=== PATIENT | female | born 1935 | race Caucasian/White ===

== ENCOUNTER 2017-09-12 10:46 | Day surgery (SDC) | payer MEDICARE, OTHER ==
[~2017-09-12] VITALS: Ht 152.4 cm; Wt 64.0 kg
[~2017-09-12 10:46] MED LIST: AMLO5 PO; ARTIFICIAL TEA3.5 G1 RIGHTEYE; ASPI325EC PO; CHOL10002; DOCU100 PO; ESTRTP VAG; FLUT.05NI; HYDCHL12.5 PO; IBUP800 PO; IRBE150 PO; LAVAP17G PO; LEVSOD50 PO; MAGNESIUM PO; MELA3 PO; METO50ER PO; METR70GEL VAG; MULVITMIND PO; OLME20 PO; SUMA25 PO; SV FLAXSEED OI1 EACH PO; TRAM50 PO; VERA180ERB PO; Ventolin/Prove6.7 GM INH; Vitamin B-Comp1 EACH PO
== END 2017-09-12 14:11 | disposition home or self-care (01) ==
LOC: ORSCSDS 10:46
PROVIDERS: Podiatrist Foot & Ankle Surgery
PROC: 0QBN0ZZ Excision of Right Metatarsal, Open Approach (ICD-10-PCS; principal; 2017-09-12 12:30)
PROC: 0QBL0ZZ Excision of Right Tarsal, Open Approach (ICD-10-PCS; principal; 2017-09-12 12:30)
DX: M19.071 Primary osteoarthritis, right ankle and foot (principal); I10 Essential (primary) hypertension; E78.5 Hyperlipidemia, unspecified; G47.33 Obstructive sleep apnea (adult) (pediatric); E03.9 Hypothyroidism, unspecified; I69.320 Aphasia following cerebral infarction; Z79.899 Other long term (current) drug therapy
CPT/HCPCS: J0171; J0690; J1100; J2250; J2405; J3010; J7120

== ENCOUNTER 2017-10-31 13:28 | Emergency (ER) | payer MEDICARE, OTHER ==
[~2017-10-31] VITALS: Ht 152.4 cm; Wt 63.5 kg
== END 2017-10-31 14:55 | disposition home or self-care (01) ==
LOC: ER 13:28
DX: Z48.89 Encounter for other specified surgical aftercare (principal)
CPT/HCPCS: 99283

== ENCOUNTER 2018-09-25 13:38 | Emergency (ER) | payer MEDICARE, OTHER ==
[~2018-09-25] VITALS: Ht 152.4 cm; Wt 65.8 kg
[2018-09-25] MEDS ORDERED: Robaxin500 MG PO (15:59)
[2018-09-25] MEDS ORDERED: Ultram50 MG PO (15:59)
[2018-09-25] MEDS ORDERED: Voltaren100 GM TOP (15:59)
== END 2018-09-25 16:13 | disposition home or self-care (01) ==
LOC: ER 13:38
DX: G89.29 Other chronic pain (principal); M54.5 Low back pain; E03.9 Hypothyroidism, unspecified; M19.90 Unspecified osteoarthritis, unspecified site; I10 Essential (primary) hypertension; M79.7 Fibromyalgia; Z88.5 Allergy status to narcotic agent; Z88.8 Allergy status to other drugs, medicaments and biological substances; Z79.82 Long term (current) use of aspirin; Z79.899 Other long term (current) drug therapy
CPT/HCPCS: 99283

== ENCOUNTER → 2018-12-07 | Outpatient (CLI) | payer MEDICARE, OTHER ==
[~2018-12-07] MED LIST changes: +Robaxin500 MG PO; +Ultram50 MG PO; +Voltaren100 GM TOP
== END | disposition home or self-care (01) ==
LOC: LAB 16:09 → LAB SHORT 16:09
DX: N89.8 Other specified noninflammatory disorders of vagina (principal)
CPT/HCPCS: 87070; 87205

== ENCOUNTER → 2019-01-05 | Outpatient (CLI) | payer MEDICARE, OTHER | LOC: LAB SHORT 16:15 → LAB 16:15 | DX: N76.3 Subacute and chronic vulvitis (principal); L82.1 Other seborrheic keratosis; I83.93 Asymptomatic varicose veins of bilateral lower extremities; L81.4 Other melanin hyperpigmentation; L50.8 Other urticaria; L85.3 Xerosis cutis | CPT/HCPCS: 87102 ==

== ENCOUNTER 2019-06-13 18:21 | Emergency (ER) | payer MEDICARE, OTHER | END 2019-06-13 20:11 | disposition left against medical advice (07) | LOC: ER 18:21 | DX: Z53.21 Procedure and treatment not carried out due to patient leaving prior to being seen by health care provider (principal) ==

== ENCOUNTER → 2019-06-19 | Outpatient (CLI) | payer MEDICARE, OTHER | END | disposition home or self-care (01) | LOC: LAB 13:06 → LAB SHORT 13:06 | DX: R41.82 Altered mental status, unspecified (principal) | CPT/HCPCS: 87086 ==

== ENCOUNTER 2020-02-05 15:43 | Observation (INO) | payer MEDICARE, OTHER ==
[~2020-02-05] VITALS: Ht 154.9 cm; Wt 62.6 kg
[2020-02-05 16:26] LABS: BASOPHILS ABSOLUTE AUTO 0.09 K/mm3 (0.00-0.23); BASOPHILS PERCENT AUTO 1 % (0-2); EOSINOPHILS ABSOLUTE AUTO 0.01 K/mm3 (0.00-0.68); EOSINOPHILS PERCENT AUTO 0 % (0-6); Hematocrit 39.2 % (33.0-51.0); Hemoglobin 13.3 g/dL (11.5-16.0); IMMATURE GRAN ABSOLUTE AUTO 0.03 K/mm3 (0.00-0.10); IMMATURE GRAN PERCENT AUTO 0 % (0-1); LYMPHOCYTES ABSOLUTE AUTO 1.65 K/mm3 (0.84-5.20); LYMPHOCYTES PERCENT AUTO 13 % (21-46); MONOCYTES ABSOLUTE AUTO 0.76 K/mm3 (0.16-1.47); MONOCYTES PERCENT AUTO 6 % (4-13); Mean Corpuscular HGB 30.2 pg (26.0-34.0); Mean Corpuscular HGB Conc 33.9 g/dL (31.5-36.5); Mean Corpuscular Volume 89 fL (80-100); Mean Platelet Volume 10.1 fL (9.1-12.4); NEUTROPHILS ABSOLUTE AUTO 9.93 K/mm3 (1.96-9.15); NEUTROPHILS PERCENT AUTO 80 % (41-73); Platelet Count 240 K/mm3 (150-400); RDW Coefficient Variation 12.4 % (11.7-14.2); RDW Standard Deviation 40.9 fL (35.1-46.3); White Blood Cell Count 12.47 K/mm3 (4.00-11.30)
[2020-02-05 16:45] LABS: International Normalized Ratio 1.05; Prothrombin Time Results 11.2 Sec (9.7-11.5)
[2020-02-05 17:01] LABS: Alanine Aminotransfer (ALT/SGP 20 U/L (12-78); Albumin, Blood 3.6 g/dL (3.4-5.0); Alk Phos 75 U/L (50-136); Anion Gap 14 mmol/L (6-16); Aspartate Aminotrans (AST/SGOT 13 U/L (12-37); Bilirubin, Total 0.6 mg/dL (0.1-1.0); Blood Urea Nitrogen 12 mg/dL (8-24); Bun/Creatinine Ratio 13.3 (12.0-20.0); CO2, Blood 18 mmol/L (21-32); Calcium, Blood 9.5 mg/dL (8.5-10.1); Chloride, Blood 103 mmol/L (98-108); Ethanol (Alcohol), Blood, Med <3 mg/dL; Globulin, Blood 3.6 g/dL (2.2-4.0); Glomerular Filtration Rate >60 (60-); Glucose, Blood 89 mg/dL (70-99); Potassium, Blood 4.1 mmol/L (3.5-5.5); Sodium, Blood 135 mmol/L (136-145); Total Protein, Blood 7.2 g/dL (6.4-8.2)
[2020-02-05 18:33] LABS: Source, Urine Catheter
[2020-02-05 18:42] LABS: Appearance, Urine Clear (Clear); Bilirubin, Urine Neg (Neg); Blood, Urine 1+ (Neg); Color, Urine Yellow (P-Yellow); Glucose Qualitative, Urine Neg (Neg); Ketones, Urine 2+ (Neg); Leukocyte Esterase, Urine Neg (Neg); Nitrite, Urine Neg (Neg); Protein, Urine Neg (Neg); Urobilinogen, Urine NORM (Normal)
[2020-02-05] MEDS ORDERED: LEVO-T50 MCG PO (18:43)
[2020-02-05] MEDS ORDERED: DULO30 PO (18:43)
[2020-02-05] MEDS ORDERED: Magnesium Oxid500 MG PO (18:45)
[2020-02-05] MEDS ORDERED: VITAMIN D310 MC4 (18:46)
[2020-02-05] MEDS ORDERED: TESSALON PERLE100 MG PO (18:47)
[2020-02-05] MEDS ORDERED: SUMA25 PO (18:47)
[2020-02-05] MEDS ORDERED: ZYRTEC10 M2 (18:47)
[2020-02-05] MEDS ORDERED: TRAM50 PO ×2 (18:47→22:57)
[2020-02-05] MEDS ORDERED: ACET500 PO (18:47)
[2020-02-05 19:19] LABS: Granular Casts 0-2 /lpf (0); Hyaline Casts 0-2 /lpf (0-2); White Blood Cells, Urine 0-2 /hpf (0-5)
[2020-02-05 19:20] LABS: Bacteria Few /hpf; Squamous Epithelial Cells Not Seen /hpf (Few)
[2020-02-05 19:23] LABS: U Amphetamine Screen Not Detected; U Barbituate Screen Not Detected; U Benzodiazapine Screen Not Detected; U Buprenorphine Screen Not Detected; U Cannabinoids Screen Not Detected; U Cocaine Screen Not Detected; U Methadone Screen Not Detected; U Methamphetamine Screen Not Detected; U Opiates Screen Not Detected; U Oxycodone Screen Not Detected; U Phencyclidine Screen Not Detected; U Propoxyphene Screen Not Detected
[2020-02-05] MEDS ORDERED: Imitrex50 MG PO (20:29)
[2020-02-05] MEDS ORDERED: HYDHCL25 PO (20:29)
[2020-02-05] MEDS ORDERED: Vitamin D2000 UNIT PO (20:30)
[2020-02-05] MEDS ORDERED: AMLODIPINE BESYL5 MG PO (20:30)
[2020-02-05] MEDS ORDERED: AVAPRO300 MG PO (20:30)
[2020-02-05] MEDS ORDERED: ZYRTEC10 M2 PO (20:31)
--- NOTE | 2020-02-06 01:02 | NUR ---
ARRIVAL TO FLOOR ARRIVED BY STRETCHER TO RM 350 @[id number]. PT RESTING COMFORTABLY, DAUGHTER VIRIDIANA @BEDSIDE TO ANSWER ADMIT QUESTIONS. PT AOX2-SELF/PLACE ONLY, HOWEVER CAN [place] STATE [place]. STATES "I'M @MY HOUSE". UNAWARE DATE OR SITUATION. DENIES PAIN, N/V OR DYSPNEA. ABLE TO FOLLOW SIMPLE DIRECTIONS SUCH BUSINESS INFO CONSULTANT EQUALLY c BILAT HANDS, STICK OUT TONGUE, & WIGGLE TOES. WITHIN 30 MIN OF ARRIVING TO FLOOR, PT PULLED OUT IV THAT WAS PLACED IN NILDA BEFORE ARRIVING TO FLOOR. PT WAS ASSISTED TO BSC c MAX 2 PER. WHILE ON BSC PT SLUMPED OVER TO LEFT & L ARM WENT WEAK, WITHIN MIN PT WAS ABLE TO SIT ERRECT AGAIN & MOVE L ARM. HAS VERY WEAK, SUFFLING, UNSTEADY GAIT. BED ALARM IN PLACE FOR SAFETY. TM.
[2020-02-06 04:41] LABS: BASOPHILS ABSOLUTE AUTO 0.08 K/mm3 (0.00-0.23); BASOPHILS PERCENT AUTO 1 % (0-2); EOSINOPHILS ABSOLUTE AUTO 0.02 K/mm3 (0.00-0.68); EOSINOPHILS PERCENT AUTO 0 % (0-6); Hematocrit 39.6 % (33.0-51.0); Hemoglobin 13.1 g/dL (11.5-16.0); IMMATURE GRAN ABSOLUTE AUTO 0.01 K/mm3 (0.00-0.10); IMMATURE GRAN PERCENT AUTO 0 % (0-1); LYMPHOCYTES ABSOLUTE AUTO 1.87 K/mm3 (0.84-5.20); LYMPHOCYTES PERCENT AUTO 23 % (21-46); MONOCYTES ABSOLUTE AUTO 0.98 K/mm3 (0.16-1.47); MONOCYTES PERCENT AUTO 12 % (4-13); Mean Corpuscular HGB Conc 33.1 g/dL (31.5-36.5); Mean Corpuscular Volume 91 fL (80-100); Mean Platelet Volume 9.8 fL (9.1-12.4); NEUTROPHILS ABSOLUTE AUTO 5.18 K/mm3 (1.96-9.15); NEUTROPHILS PERCENT AUTO 64 % (41-73); Platelet Count 239 K/mm3 (150-400); RDW Coefficient Variation 12.6 % (11.7-14.2); Red Blood Cell Count 4.36 M/mm3 (3.80-5.20); White Blood Cell Count 8.14 K/mm3 (4.00-11.30)
[2020-02-06 04:56] LABS: Calcium, Blood 9.4 mg/dL (8.5-10.1)
--- NOTE | 2020-02-06 06:05 | NUR ---
SHIFT SUMMARY AOX2-SELF/TOWN ONLY, DX DEMENTIA 6 MONTHS AGO PER DAUGHTER. DOES FOLLOW DIRECTIONS. PLEASENT & COOPERATIVE c CARE. VSS. DENIES N/V, PAIN, DYSPNEA. CURRENTLY NPO PER ORDERS. PLAN IS TO MONITOR & SEE IF MENTATION IMPROVES ONCE CYMBALTA CLEARS OUT OF SYSTEM, SINCE PT HAS A REPORTED ALLERGY. DOES NOT USE CALL LIGHT FOR ASSISTANCE & TRYS TO GET OOB W/O HELP, HAS UNSTEADY/SUFFLING GAIT, 2 ASSIST TO BSC. DAUGHTER REPORTED PT HASN'T EATEN IN 2 DAYS. CALL LIGHT & BED ALARM IN PLACE FOR SAFETY.
--- NOTE | 2020-02-06 11:32 | NUR ---
PT DISCHARGED HOME. NO NEW MEDS TO EDUCATE ON. TRIED TO MAKE FOLLOW UP WITH PCP BUT PLACED ON HOLD THEN SENT TO RECORDING. PT FAMILY TO SET FOLLOW UP. NO IV TO REMOVED. PT DRESSED BY STAFF AND WHEELED OUT TO BE TAKEN HOME BY FAMILY.
== END 2020-02-06 11:32 | disposition home or self-care (01) ==
LOC: ER 15:43 → MEDS 15:44
PROVIDERS: Nurse Practitioner Acute Care; Physician Assistant; ADMIT Internal Medicine
DX: G92 Toxic encephalopathy (principal); F03.90 Unspecified dementia, unspecified severity, without behavioral disturbance, psychotic disturbance, mood disturbance, and anxiety; I10 Essential (primary) hypertension; E03.9 Hypothyroidism, unspecified; G89.29 Other chronic pain; G43.909 Migraine, unspecified, not intractable, without status migrainosus; M54.5 Low back pain; M19.90 Unspecified osteoarthritis, unspecified site; M79.7 Fibromyalgia; J45.909 Unspecified asthma, uncomplicated; Z90.710 Acquired absence of both cervix and uterus; Z90.49 Acquired absence of other specified parts of digestive tract; Z66 Do not resuscitate; Z88.4 Allergy status to anesthetic agent; Z88.5 Allergy status to narcotic agent; Z88.6 Allergy status to analgesic agent; Z88.8 Allergy status to other drugs, medicaments and biological substances; Z79.82 Long term (current) use of aspirin; Z79.51 Long term (current) use of inhaled steroids; Z79.1 Long term (current) use of non-steroidal anti-inflammatories (NSAID); Z79.899 Other long term (current) drug therapy
CPT/HCPCS: 36415; 70450; 80048; 80053; 81001; 84443; 84484; 85025; 85610; 93005; 93010; 96372; 99285-25; A9270-GY; G0378; G0480; J2060; P9612

== ENCOUNTER 2020-03-28 13:21 | Observation (INO) | payer MEDICARE, OTHER ==
[~2020-03-28] VITALS: Ht 162.6 cm; Wt 60.7 kg
[~2020-03-28 13:21] MED LIST changes: +ACET500 PO; +AMLODIPINE BESYL5 MG PO; +AVAPRO300 MG PO; +DULO30 PO; +HYDHCL25 PO; +Imitrex50 MG PO; +LEVO-T50 MCG PO; +Magnesium Oxid500 MG PO; +TESSALON PERLE100 MG PO; +VITAMIN D310 MC4; +Vitamin D2000 UNIT PO; +ZYRTEC10 M2; +ZYRTEC10 M2 PO
[2020-03-28 13:43] LABS: BASOPHILS PERCENT AUTO 1 % (0-2); EOSINOPHILS ABSOLUTE AUTO 0.09 K/mm3 (0.00-0.68); EOSINOPHILS PERCENT AUTO 1 % (0-6); Hematocrit 42.2 % (33.0-51.0); Hemoglobin 13.9 g/dL (11.5-16.0); IMMATURE GRAN ABSOLUTE AUTO 0.02 K/mm3 (0.00-0.10); IMMATURE GRAN PERCENT AUTO 0 % (0-1); LYMPHOCYTES ABSOLUTE AUTO 3.32 K/mm3 (0.84-5.20); LYMPHOCYTES PERCENT AUTO 36 % (21-46); MONOCYTES ABSOLUTE AUTO 0.62 K/mm3 (0.16-1.47); MONOCYTES PERCENT AUTO 7 % (4-13); Mean Corpuscular HGB 30.1 pg (26.0-34.0); Mean Corpuscular HGB Conc 32.9 g/dL (31.5-36.5); Mean Corpuscular Volume 91 fL (80-100); Mean Platelet Volume 9.8 fL (9.1-12.4); NEUTROPHILS ABSOLUTE AUTO 5.09 K/mm3 (1.96-9.15); NEUTROPHILS PERCENT AUTO 55 % (41-73); Platelet Count 248 K/mm3 (150-400); RDW Coefficient Variation 13.4 % (11.7-14.2); RDW Standard Deviation 45.2 fL (35.1-46.3); Red Blood Cell Count 4.62 M/mm3 (3.80-5.20); White Blood Cell Count 9.24 K/mm3 (4.00-11.30)
[2020-03-28 14:07] LABS: Source, Urine Catheter
[2020-03-28 14:15] LABS: Appearance, Urine Clear (Clear); Bilirubin, Urine Neg (Neg); Blood, Urine Neg (Neg); Color, Urine Yellow (P-Yellow); Glucose Qualitative, Urine Neg (Neg); Ketones, Urine 1+ (Neg); Leukocyte Esterase, Urine Neg (Neg); Nitrite, Urine Neg (Neg); Protein, Urine 1+ (Neg); Specific Gravity, Urine 1.015 (1.003-1.022); Urobilinogen, Urine NORM (Normal)
[2020-03-28 14:15] LABS: Alanine Aminotransfer (ALT/SGP 22 U/L (12-78); Albumin, Blood 3.6 g/dL (3.4-5.0); Alk Phos 83 U/L (50-136); Anion Gap 10 mmol/L (6-16); Aspartate Aminotrans (AST/SGOT 20 U/L (12-37); Bilirubin, Total 0.5 mg/dL (0.1-1.0); Blood Urea Nitrogen 8 mg/dL (8-24); Bun/Creatinine Ratio 10.3 (12.0-20.0); CO2, Blood 20 mmol/L (21-32); Calcium, Blood 10.2 mg/dL (8.5-10.1); Chloride, Blood 110 mmol/L (98-108); Creatinine, Blood 0.78 mg/dL (0.40-1.00); Globulin, Blood 3.6 g/dL (2.2-4.0); Glomerular Filtration Rate >60 (60-); Glucose, Blood 113 mg/dL (70-99); Salicylate <1.7 mg/dL (2.8-20.0); Sodium, Blood 140 mmol/L (136-145); Total Protein, Blood 7.2 g/dL (6.4-8.2)
[2020-03-28 14:17] LABS: Acetaminophen, Random <2.0 ug/mL (10.0-30.0)
[2020-03-28 14:53] LABS: U Amphetamine Screen Not Detected; U Barbituate Screen Not Detected; U Benzodiazapine Screen Not Detected; U Buprenorphine Screen Not Detected; U Cannabinoids Screen Not Detected; U Cocaine Screen Not Detected; U Methadone Screen Not Detected; U Methamphetamine Screen Not Detected; U Opiates Screen Not Detected; U Oxycodone Screen Not Detected; U Phencyclidine Screen Not Detected
[2020-03-28 14:54] LABS: U Propoxyphene Screen Not Detected
[2020-03-28] MEDS ORDERED: AVAPRO300 MG PO (15:14)
--- NOTE | 2020-03-28 18:23 | NUR ---
ADMISSION TO MEDICAL FLOOR/SHIFT SUMMARY PT TRANSFERRED TO MEDICAL FLOOR AT APPROX 1712. PT SLEEPING UPON ARRIVAL. SOME OCCASIONAL INCOHERENT MUMBLING. UNABLE TO ANSWER QUESTIONS. UNABLE TO ORIENT TO THE ROOM. RESISTIVE TO SOME CARE SUCH BLOOD PRESSURE, BRIEF CHANGE AND LAB DRAW. VITALS OBTAINED UPON ARRIVAL. BP, HR AND TEMP ELEVATED. VEWS SCORE OF 3 REPORTED TO CHARGE NURSE, RENATO. CRITICAL LACTIC REPORTED TO DR SERNA. PT TRYING TO SWING LEGS OUT OF BED. BED ALARM ON. DR SERNA IN ROOM. DISCUSSED PT CURRENT STATUS. ADDITIONAL ORDERS PLACED. PHYSICAL ASSESSMENT PERFORMED. SEE CHART. PT CURRENTLY RESTING IN BED WITH CALL LIGHT IN REACH.
[2020-03-28 19:43] LABS: Influenza A, PCR Negative (NEGATIVE); Influenza B, PCR Negative (NEGATIVE); Resp Syncytial Virus, PCR Negative (NEGATIVE); SARS-Cov-2 (COVID-19) PCR, MMC Negative (NEGATIVE)
[2020-03-28] MEDS ORDERED: ACET325 PO (20:50)
[2020-03-28] MEDS ORDERED: MELATONIN5 M1 PO (20:51)
[2020-03-28] MEDS ORDERED: ARTIFICIAL TEAR15 M2 BOTHEYES (20:53)
[2020-03-28] MEDS ORDERED: FLONASE ALLERG9.9 M2 (20:54)
--- NOTE | 2020-03-29 04:24 | NUR ---
SHIFT SUMMARY ASSUMED CARE OF PT AT 1900. PT IS A/OX2. AT THE BEGINNING OF THE SHIFT PT COULD ONLY SAY ONE WORD SENTENCES, NOW PT CAN STATES HE NEEDS AND KNOWS HER NAME, DATE OF , AND WHERE SHE IS, PT STILL ATTEMPTS TO GET OUT OF BED AND DOESNT USE CALL LIGHT APPROPIATLEY. HEART SOUNDS HAVE A MURMUR. LUNG SOUNDS ARE DIMINISHED. PT WAS INCONTINENT OF URINE T/O THE NIGHT. CALL LIGHT IN REACH, BED ALARM ON, BED IN LOWEST POSTION, CAMERA MONITORING.
[2020-03-29 04:56] LABS: BASOPHILS PERCENT AUTO 1 % (0-2); EOSINOPHILS ABSOLUTE AUTO 0.03 K/mm3 (0.00-0.68); EOSINOPHILS PERCENT AUTO 0 % (0-6); Hematocrit 42.4 % (33.0-51.0); Hemoglobin 13.5 g/dL (11.5-16.0); IMMATURE GRAN ABSOLUTE AUTO 0.04 K/mm3 (0.00-0.10); IMMATURE GRAN PERCENT AUTO 0 % (0-1); LYMPHOCYTES ABSOLUTE AUTO 2.36 K/mm3 (0.84-5.20); LYMPHOCYTES PERCENT AUTO 26 % (21-46); MONOCYTES ABSOLUTE AUTO 1.09 K/mm3 (0.16-1.47); MONOCYTES PERCENT AUTO 12 % (4-13); Mean Corpuscular HGB 29.3 pg (26.0-34.0); Mean Corpuscular HGB Conc 31.8 g/dL (31.5-36.5); Mean Corpuscular Volume 92 fL (80-100); Mean Platelet Volume 11.2 fL (9.1-12.4); NEUTROPHILS ABSOLUTE AUTO 5.63 K/mm3 (1.96-9.15); NEUTROPHILS PERCENT AUTO 61 % (41-73); Platelet Count 202 K/mm3 (150-400); RDW Coefficient Variation 13.5 % (11.7-14.2); RDW Standard Deviation 45.9 fL (35.1-46.3); White Blood Cell Count 9.25 K/mm3 (4.00-11.30)
[2020-03-29 05:14] LABS: Alanine Aminotransfer (ALT/SGP 19 U/L (12-78); Albumin, Blood 3.3 g/dL (3.4-5.0); Albumin/Globulin Ratio 0.9 (0.8-1.8); Alk Phos 77 U/L (50-136); Anion Gap 8 mmol/L (6-16); Aspartate Aminotrans (AST/SGOT 30 U/L (12-37); Bilirubin, Total 0.7 mg/dL (0.1-1.0); Blood Urea Nitrogen 5 mg/dL (8-24); Bun/Creatinine Ratio 6.9 (12.0-20.0); CO2, Blood 23 mmol/L (21-32); Calcium, Blood 9.6 mg/dL (8.5-10.1); Chloride, Blood 108 mmol/L (98-108); Creatinine, Blood 0.73 mg/dL (0.40-1.00); Globulin, Blood 3.5 g/dL (2.2-4.0); Glomerular Filtration Rate >60 (60-); Glucose, Blood 93 mg/dL (70-99); Potassium, Blood 3.5 mmol/L (3.5-5.5); Sodium, Blood 139 mmol/L (136-145); Total Protein, Blood 6.8 g/dL (6.4-8.2)
--- NOTE | 2020-03-29 14:41 | NUR ---
AT BEDSIDE AND STATES THAT PATIENT IS NOT ACTING LIKE HERSELF. PT WORKED WITH PATIENT AND NOTICED THAT SHE WAS HAVING SOME HALLUCINATIONS. SHE WAS SEEING BUGS AND ANIMALS IN HER ROOM. DR. SERNA NOTIFIED AND DISCHARGE WILL BE HELD FOR TODAY.
--- NOTE | 2020-03-29 17:04 | NUR ---
PATIENT REMAINS CONFUSED AND WEAK. DAUGHTER VIRIDIANA AND AT BEDSIDE THIS EVENING AND DO NOT FEEL THAT PATIENT IS AT HER BASELINE. PATIENT A/O TO SELF AND FAMILY ONLY. REQUIRES MULTIPLE QUES WITH TRANSFERS. UP WITH FWW, GB AND 1 ASSIST TO GET TO BSC/CHAIR. VSS, ON RA. PLACED ON MS DIET TODAY WITH ASPIRATION PRECAUTIONS. NO IV SITE. TYLENOL GIVEN X1 THIS SHIFT TO TREAT LOW BACK PAIN AND LIDOCAINE PATCH IN PLACE. PER PREVIOUS NOTE, PATIENT WAS HAVING SOME HALLUCINATIONS THIS EVENING WHILE WORKING WITH PT. DISCHARGE WAS CANCELLED FOR TODAY. FALL PRECAUTIONS IN PLACE AND PATIENT ON REMOTE MONITORING FOR SAFETY.
--- NOTE | 2020-03-30 04:06 | NUR ---
SHIFT SUMMARY ASSUMED CARE OF 1900. PT IS A/OX2. PT HAS BECOME MORE CONFUSED T/O THE SHIFT. PT HAS ATTEMPTED TO EXIT THE BED MULTIPLE TIMES, SOMETIMES TO USE THE BOTHROOM AND SOMETIMES SHE CANT REMEMBER WHY. PT WAS GIVE PO ZYPREXA WITH LITTLE EFFECT ON BEHAVIOR. PT ONLY SLEPT ABOUT 2 HOURS DURNG THE NIGHT. PT HAD VISUAL AND AUDITORY HALLUCINATIONS. PT THOUGHT THAT SHE SAW BUGS FLYING IN THE ROOM AND SHE STATED ONCE THAT SHE WAS TALKING TO HER FRIEND IN THE ROOM. PT IS TEARFUL WHEN SHE TALKS ABOUT GOING HOME. PT WAS A 1P TO BATHROOM BUT IS WABBLY ON HER FEET AND SAYS THAT SHE GETS DIZZY. CALL LIGHT IN REACH, BED IN LOWEST POSITION.
--- NOTE | 2020-03-30 17:36 | NUR ---
PATIENT A/O TO SELF AND FAMILY. HAVING VISUAL HALLUCINATIONS THROUGHOUT THE DAY. SEROQUEL ORDERED PRN AND SCHEDULED AT BEDTIME FOR AGITATION AND HALLUCINATIONS. ONE PRN DOSE GIVEN THIS EVENING. UP TO CHAIR/BSC WITH FWW AND 1 ASSIST. CONTINENT OF URINE AND STOOL. DR. SERNA SPOKE WITH FAMILY TODAY AND THEY DISCUSSED POSSIBLE PLACEMENT IN MEMORY CARE FACILITY. PATIENT IS VERY PLEASANT AND COOPERATIVE WITH CARE. VSS, ON RA. TOLERATING MS DIET, TAKES PILLS WHOLE WITH H2O. FALL PRECAUTIONS IN PLACE AND REMOTE MONITORING FOR SAFETY.
--- NOTE | 2020-03-31 03:57 | NUR ---
SHIFT SUMMARY ASSUMED CARE OF PT AT 1900. PT IS A/OX1 WITH VISUAL AND AUDITORY HALLUCINATIONS. PT WAS DIFFICULT TO DIRECT AND NEEDED TWO PER ASSIT TO BSC. BEDTIME SEROQUEL WAS INITIALLY BERYL DUE TO LETHARGY BUT PT BECAME MORE AGITATED. PT ONE WOKE ONCE DURING THE NIGHT TO USE THE BSC. NO OTHER EVENTS. PT SLEPT WELL TONIGHT. CALL LIGHT IN REACH, BED IN LOWEST POSTION.
--- NOTE | 2020-03-31 11:22 | NUR ---
PHYSICAL THERAPY ALERTED RN OF PATIENT'S SLURRED SPEECH. PATIENT'S HEEL COVER SOFTENER STRENGTH UNEQUAL, RIGHT RIDED WEAKNESS. FOOT FLEXION AND EXTENSION UNEQUAL, RIGHT SIDED WEAKNESS. PATIENT C/O MIGRAINE. VITALS FOLLOWS: BP 94/43, PULSE 84, O2 SATURATION 99% ON RA. DR. SERNA NOTIFIED OF CHANGE AND ORDERED A HEAD CT WITHOUT CONTRAST. PATIENT C/O FEELING COLD, WARM BLANKET GIVEN TO HER.
--- NOTE | 2020-03-31 17:43 | NUR ---
PATIENT IS ALERT AND ORIENTED TO SELF, FAMILY AND SURROUNDINGS. PATIENT C/O A MIGRAINE TODAY. THE PATIENT'S AND DAUGHTER WERE AT THE BEDSIDE TODAY AND WERE ABLE TO TALK TO DR. SERNA ABOUT PLACEMENT. THE PATIENT IS UP IN THE CHAIR FOR DINNER AT THIS TIME. WILL CONTINUE TO MONITOR.
--- NOTE | 2020-04-01 04:02 | NUR ---
CLAIMS DIRECTOR SUMMARY A/O TO SELF. CURRENTLY ON VIDEO MONITORING WITH BED ALARM SET FOR SAFETY. MULTIPLE ATTEMPTS TO GET OUT OF BED T/O THE NIGHT. EASILY REDIRECTABLE. 1 ASSIST TO BSC. C/O BACK PAIN, SCHEDULED TYLENOL GIVEN WELL REPOSITIONING AND HEAT TX. BREATHING IS EVEN AND UNLABORED. VSS. NO ACUTE CHANGES AT THIS TIME. BED IN LOWEST POSITION WITH CALL LIGHT IN REACH. WILL CONTINUE TO MONITOR AND REPORT TO ONCOMING RN.
--- NOTE | 2020-04-01 17:18 | NUR ---
PATIENT IS ALERT AND ORIENTED TO SELF, FAMILY AND FOLLOWING DIRECTIONS. PATIENT WORKED WITH PHYSICAL THERAPY TODAY. SHE IS A 1PA TO THE BATHROOM TODAY. THE FAMILY VISITED THIS AFTERNOON. THE PLAN IS FOR THE [facility] TO ASSESS THE PATIENT TOMORROW. THE RESTRAINTS WERE DISCONTINUED THIS MORNING. NO C/O MIGRAINE TODAY. WILL CONTINUE TO MONITOR.
--- NOTE | 2020-04-02 05:30 | NUR ---
SHIFT SUMMARY PT REMAINS CONFUSED. APPEARED TO BECOME MORE CONFUSED LATER IN THE EVENING. PT UP FREQUENTLY, SETTING OFF THE BED ALARM OR STAFF BEING NOTIFIED OF PT GETTING OUT OF BED BY REMOTE MONITORING. PT DID NOT FALL ASLEEP UNTIL APPROX 0430. PT HAD SOME SLURRED SPEECH RELATED TO MIGRAINES. SCHEDULED TYLENOL GIVEN. PT ONLY VOIDING SMALL AMOUNTS WITH EACH VOID. NO ACUTE CHANGES THIS SHIFT. VITAL SIGNS STABLE. WILL CONTINUE TO MONITOR.
--- NOTE | 2020-04-02 07:57 | NUR ---
OTHER CORRECTIONAL SERGEANT TALKED PT TO GO TO [facility] SO CAN BRUSH TEETH AND BE UP FOR BREAKFAST, NURSE HELPED PT BACK TO BED, CALL LIGHT IN REACH.
--- NOTE | 2020-04-02 18:07 | NUR ---
SHIFT SUMMARY PT HAS BEEN UP MULTIPLE TIMES TODAY FROM BED. ALARM GOING OFF FREQUENTLY. RARELY NEEDS ANYTHING BUT CAN BE QUITE CHATTY. THE [facility] HERE TO VISIT PT THIS MORNING AND HAS BEEN ACCEPTED FOR TUESDAY. FAMILY IN TO VISIT PT THIS AFTERNOON AND DAUGHTER BROUGHT FOOD FOR DINNER. HAS BEEN TO BATHROOM SEVERAL TIMES TODAY.
--- NOTE | 2020-04-03 04:19 | NUR ---
SHIFT SUMMARY PT PLEASANTLY CONFUSED. FREQUENTLY UP OUT OF BED. VOIDS FREQUENTLY. ONLY SLEPT FOR 1 HOUR THIS EVENING. INSISTED ON PUTTING ON PANTS AND SHOES AT ONE POINT. AGREED TO STAY IN [place] PANTS BUT PUT TENNIS SHOES ON BY HERSELF AND WORE THEM IN BED. SLIGHTLY MORE DIFFICULT TO REDIRECT THIS EVENING. VITAL SIGNS STABLE. AWAITING TRANSFER TO THE [facility]. NO ACUTE CHANGES THIS EVENING. WILL CONTINUE TO MONITOR AND REPORT TO DAY RN.
[2020-04-03 04:50] LABS: BASOPHILS ABSOLUTE AUTO 0.09 K/mm3 (0.00-0.23); BASOPHILS PERCENT AUTO 2 % (0-2); EOSINOPHILS ABSOLUTE AUTO 0.12 K/mm3 (0.00-0.68); EOSINOPHILS PERCENT AUTO 2 % (0-6); Hematocrit 35.4 % (33.0-51.0); Hemoglobin 11.8 g/dL (11.5-16.0); IMMATURE GRAN ABSOLUTE AUTO 0.02 K/mm3 (0.00-0.10); IMMATURE GRAN PERCENT AUTO 0 % (0-1); LYMPHOCYTES ABSOLUTE AUTO 2.36 K/mm3 (0.84-5.20); LYMPHOCYTES PERCENT AUTO 43 % (21-46); MONOCYTES ABSOLUTE AUTO 0.58 K/mm3 (0.16-1.47); MONOCYTES PERCENT AUTO 11 % (4-13); Mean Corpuscular HGB 29.7 pg (26.0-34.0); Mean Corpuscular HGB Conc 33.3 g/dL (31.5-36.5); Mean Corpuscular Volume 89 fL (80-100); NEUTROPHILS ABSOLUTE AUTO 2.38 K/mm3 (1.96-9.15); NEUTROPHILS PERCENT AUTO 43 % (41-73); Platelet Count 226 K/mm3 (150-400); RDW Coefficient Variation 14.2 % (11.7-14.2); RDW Standard Deviation 46.3 fL (35.1-46.3); Red Blood Cell Count 3.97 M/mm3 (3.80-5.20); White Blood Cell Count 5.55 K/mm3 (4.00-11.30)
[2020-04-03 05:07] LABS: Albumin, Blood 3.2 g/dL (3.4-5.0); Anion Gap 9 mmol/L (6-16); Blood Urea Nitrogen 12 mg/dL (8-24); Bun/Creatinine Ratio 14.7 (12.0-20.0); CO2, Blood 21 mmol/L (21-32); Calcium, Blood 9.4 mg/dL (8.5-10.1); Chloride, Blood 108 mmol/L (98-108); Creatinine, Blood 0.82 mg/dL (0.40-1.00); Glomerular Filtration Rate >60 (60-); Glucose, Blood 91 mg/dL (70-99); Magnesium, Blood 2.1 mg/dL (1.6-2.4); Phosphorus, Blood 3.3 mg/dL (2.5-4.9); Potassium, Blood 3.6 mmol/L (3.5-5.5); Sodium, Blood 138 mmol/L (136-145)
[2020-04-03] MEDS ORDERED: ACET500 PO (11:05)
[2020-04-03] MEDS ORDERED: LIDOCAINE1 EAC1 TOP (11:10)
[2020-04-03] MEDS ORDERED: QUET25 PO (11:14)
[2020-04-03] MEDS ORDERED: Seroquel Xr50 MG PO (11:15)
--- NOTE | 2020-04-03 13:46 | NUR ---
SUMMARY/DISCHARGE PT DISCHARGED TO HOME, DISCHARGE INSTRUCTIONS GIVEN TO THE SPOUSE AND DAUGHTER, PT TAKEN OUT SAFELY VIA WHEELCHAIR
== END 2020-04-03 13:12 | disposition home health service (06) ==
LOC: ER 13:21 → MEDS 13:22
PROVIDERS: Emergency Medicine; Internal Medicine; ADMIT Internal Medicine
DX: I67.4 Hypertensive encephalopathy (principal); G81.94 Hemiplegia, unspecified affecting left nondominant side; R47.81 Slurred speech; G92 Toxic encephalopathy; I16.0 Hypertensive urgency; E87.2 Acidosis; I10 Essential (primary) hypertension; E03.9 Hypothyroidism, unspecified; G43.909 Migraine, unspecified, not intractable, without status migrainosus; M19.90 Unspecified osteoarthritis, unspecified site; M79.7 Fibromyalgia; F03.90 Unspecified dementia, unspecified severity, without behavioral disturbance, psychotic disturbance, mood disturbance, and anxiety; J45.909 Unspecified asthma, uncomplicated; M54.9 Dorsalgia, unspecified; G89.29 Other chronic pain; F03.91 Unspecified dementia, unspecified severity, with behavioral disturbance; Z88.5 Allergy status to narcotic agent; Z88.6 Allergy status to analgesic agent; Z88.4 Allergy status to anesthetic agent; Z88.8 Allergy status to other drugs, medicaments and biological substances; Z79.899 Other long term (current) drug therapy; Z66 Do not resuscitate; Z20.828 Contact with and (suspected) exposure to other viral communicable diseases; Z23 Encounter for immunization
CPT/HCPCS: 0241U; 36415; 51701; 70450; 80053; 80069; 83605; 83735; 85025; 87040; 92526; 92610; 96372-59; 96374-59; 96375-59; 97110-CQ; 97116-CQ; 97161; 97165; 97530; 97530-CQ; 97535-CO; 99285-25; A9270; A9270-GY; G0480; J1200; J1630; J1650; J2060; J7030

== ENCOUNTER 2020-06-03 20:50 | Emergency (ER) | payer MEDICARE, OTHER ==
[~2020-06-03] VITALS: Ht 152.4 cm; Wt 65.3 kg
[~2020-06-03 20:50] MED LIST changes: +ACET325 PO; +ARTIFICIAL TEAR15 M2 BOTHEYES; +FLONASE ALLERG9.9 M2; +LIDOCAINE1 EAC1 TOP; +MELATONIN5 M1 PO; +QUET25 PO; +Seroquel Xr50 MG PO
[2020-06-03] MEDS ORDERED: Silvadene20 GM TOP ×2 (22:28→23:11)
[2020-06-03] MEDS ORDERED: ONDA4ODT MM ×2 (22:28→23:11)
[2020-06-03] MEDS ORDERED: TRAM50 PO (22:28)
[2020-06-03] MEDS ORDERED: LIDO5TO TOP (23:11)
== END 2020-06-03 23:25 | disposition home or self-care (01) ==
LOC: ER 20:50
DX: T24.212A Burn of second degree of left thigh, initial encounter (principal); I10 Essential (primary) hypertension; E03.9 Hypothyroidism, unspecified; J45.909 Unspecified asthma, uncomplicated; Z88.5 Allergy status to narcotic agent; Z88.8 Allergy status to other drugs, medicaments and biological substances; Z88.6 Allergy status to analgesic agent; Z88.4 Allergy status to anesthetic agent; Z79.899 Other long term (current) drug therapy; X10.0XXA Contact with hot drinks, initial encounter; T31.10 Burns involving 10-19% of body surface with 0% to 9% third degree burns
CPT/HCPCS: 16020; 90471; 90714; 99283-25; A9270

== ENCOUNTER 2020-06-16 01:25 | Day surgery (SDC) | payer MEDICARE, OTHER ==
[~2020-06-16 01:25] MED LIST changes: +LIDO5TO TOP; +ONDA4ODT MM; +Silvadene20 GM TOP
== END 2020-06-16 23:06 | disposition home or self-care (01) ==
LOC: WOUND 01:25
DX: T24.212D Burn of second degree of left thigh, subsequent encounter (principal); X58.XXXD Exposure to other specified factors, subsequent encounter; Z88.5 Allergy status to narcotic agent; Z88.8 Allergy status to other drugs, medicaments and biological substances
CPT/HCPCS: G0463

== ENCOUNTER 2020-06-24 00:33 | Day surgery (SDC) | payer MEDICARE, OTHER | END 2020-06-24 22:42 | disposition home or self-care (01) | LOC: WOUND 00:33 | DX: T24.212D Burn of second degree of left thigh, subsequent encounter (principal); X12.XXXD Contact with other hot fluids, subsequent encounter ==

== ENCOUNTER 2020-07-01 00:30 | Day surgery (SDC) | payer MEDICARE, OTHER | END 2020-07-01 23:14 | disposition home or self-care (01) | LOC: WOUND 00:30 | DX: T24.212D Burn of second degree of left thigh, subsequent encounter (principal); X10.0XXD Contact with hot drinks, subsequent encounter | CPT/HCPCS: G0463 ==

== ENCOUNTER 2020-09-08 11:12 | Emergency (ER) | payer MEDICARE, OTHER ==
[~2020-09-08] VITALS: Ht 152.4 cm; Wt 65.3 kg
[2020-09-08] MEDS ORDERED: DONEPEZIL HCL10 M1 PO (11:34)
[2020-09-08 11:50] LABS: BASOPHILS ABSOLUTE AUTO 0.06 K/mm3 (0.00-0.23); BASOPHILS PERCENT AUTO 1 % (0-2); EOSINOPHILS ABSOLUTE AUTO 0.06 K/mm3 (0.00-0.68); EOSINOPHILS PERCENT AUTO 1 % (0-6); Hematocrit 38.6 % (33.0-51.0); Hemoglobin 13.1 g/dL (11.5-16.0); IMMATURE GRAN ABSOLUTE AUTO 0.01 K/mm3 (0.00-0.10); IMMATURE GRAN PERCENT AUTO 0 % (0-1); LYMPHOCYTES PERCENT AUTO 25 % (21-46); MONOCYTES ABSOLUTE AUTO 0.52 K/mm3 (0.16-1.47); MONOCYTES PERCENT AUTO 7 % (4-13); Mean Corpuscular HGB 30.1 pg (26.0-34.0); Mean Corpuscular HGB Conc 33.9 g/dL (31.5-36.5); Mean Corpuscular Volume 89 fL (80-100); Mean Platelet Volume 9.7 fL (9.1-12.4); NEUTROPHILS ABSOLUTE AUTO 5.16 K/mm3 (1.96-9.15); NEUTROPHILS PERCENT AUTO 67 % (41-73); Platelet Count 241 K/mm3 (150-400); RDW Coefficient Variation 13.3 % (11.7-14.2); RDW Standard Deviation 43.8 fL (35.1-46.3); Red Blood Cell Count 4.35 M/mm3 (3.80-5.20); White Blood Cell Count 7.71 K/mm3 (4.00-11.30)
[2020-09-08 12:00] LABS: Alanine Aminotransfer (ALT/SGP 19 U/L (12-78); Albumin, Blood 3.5 g/dL (3.4-5.0); Alk Phos 85 U/L (50-136); Anion Gap 5 mmol/L (6-16); Aspartate Aminotrans (AST/SGOT 19 U/L (12-37); Bilirubin, Total 0.4 mg/dL (0.1-1.0); Blood Urea Nitrogen 14 mg/dL (8-24); Bun/Creatinine Ratio 14.5 (12.0-20.0); CO2, Blood 26 mmol/L (21-32); Calcium, Blood 9.2 mg/dL (8.5-10.1); Chloride, Blood 104 mmol/L (98-108); Creatinine, Blood 0.97 mg/dL (0.40-1.00); Globulin, Blood 3.6 g/dL (2.2-4.0); Glomerular Filtration Rate 59 (60-); Glucose, Blood 86 mg/dL (70-99); Potassium, Blood 3.8 mmol/L (3.5-5.5); Sodium, Blood 135 mmol/L (136-145); Total Protein, Blood 7.1 g/dL (6.4-8.2); Troponin I <0.015 ng/mL (0.000-0.040)
[2020-09-08 12:38] LABS: Appearance, Urine Clear (Clear); Bilirubin, Urine Neg (Neg); Blood, Urine Neg (Neg); Color, Urine Yellow (P-Yellow); Glucose Qualitative, Urine Neg (Neg); Ketones, Urine Neg (Neg); Leukocyte Esterase, Urine Neg (Neg); Nitrite, Urine Neg (Neg); Protein, Urine Neg (Neg); Urobilinogen, Urine NORM (Normal)
== END 2020-09-08 13:47 | disposition home or self-care (01) ==
LOC: ER 11:12
PROVIDERS: Emergency Medicine
DX: S39.012A Strain of muscle, fascia and tendon of lower back, initial encounter (principal); I10 Essential (primary) hypertension; E03.9 Hypothyroidism, unspecified; Z88.5 Allergy status to narcotic agent; Z88.8 Allergy status to other drugs, medicaments and biological substances; Z79.899 Other long term (current) drug therapy; W06.XXXA Fall from bed, initial encounter
CPT/HCPCS: 36415; 72100; 80053; 81003; 84484; 85025; 93005; 93010; 96374; 96375; 99284-25; J1170; J2405

== ENCOUNTER 2022-03-23 14:43 | Emergency (ER) | payer MEDICARE, OTHER ==
[~2022-03-23] VITALS: Ht 152.4 cm; Wt 68.0 kg
[~2022-03-23 14:43] MED LIST changes: +DONEPEZIL HCL10 M1 PO
[2022-03-23 16:00] LABS: BASOPHILS ABSOLUTE AUTO 0.05 K/mm3 (0.00-0.23); BASOPHILS PERCENT AUTO 1 % (0-2); EOSINOPHILS ABSOLUTE AUTO 0.01 K/mm3 (0.00-0.68); EOSINOPHILS PERCENT AUTO 0 % (0-6); Hematocrit 39.7 % (33.0-51.0); Hemoglobin 13.1 g/dL (11.5-16.0); IMMATURE GRAN ABSOLUTE AUTO 0.01 K/mm3 (0.00-0.10); IMMATURE GRAN PERCENT AUTO 0 % (0-1); LYMPHOCYTES ABSOLUTE AUTO 1.04 K/mm3 (0.84-5.20); LYMPHOCYTES PERCENT AUTO 21 % (21-46); MONOCYTES ABSOLUTE AUTO 0.52 K/mm3 (0.16-1.47); MONOCYTES PERCENT AUTO 10 % (4-13); Mean Corpuscular HGB 31.6 pg (26.0-34.0); Mean Corpuscular Volume 96 fL (80-100); Mean Platelet Volume 10.2 fL (9.1-12.4); NEUTROPHILS ABSOLUTE AUTO 3.41 K/mm3 (1.96-9.15); NEUTROPHILS PERCENT AUTO 68 % (41-73); Platelet Count 192 K/mm3 (150-400); RDW Standard Deviation 49.6 fL (35.1-46.3); Red Blood Cell Count 4.14 M/mm3 (3.80-5.20); White Blood Cell Count 5.04 K/mm3 (4.00-11.30)
[2022-03-23 16:33] LABS: Magnesium, Blood 2.1 mg/dL (1.6-2.4)
[2022-03-23 16:35] LABS: Albumin, Blood 3.5 g/dL (3.4-5.0); Bilirubin, Total 0.5 mg/dL (0.1-1.0); Bun/Creatinine Ratio 14.5 (12.0-20.0); Calcium, Blood 9.5 mg/dL (8.5-10.1); Creatinine, Blood 0.97 mg/dL (0.40-1.00); Globulin, Blood 3.5 g/dL (2.2-4.0); Potassium, Blood 4.3 mmol/L (3.5-5.5)
[2022-03-23 17:27] LABS: Influenza B, PCR NEGATIVE (NEGATIVE); Resp Syncytial Virus, PCR NEGATIVE (NEGATIVE); SARS-Cov-2 (COVID-19) PCR, MMC NEGATIVE (NEGATIVE)
[2022-03-23 17:30] LABS: Influenza A, PCR POSITIVE (NEGATIVE)
== END 2022-03-23 19:09 | disposition home or self-care (01) ==
LOC: ER 14:43
PROVIDERS: Physician Assistant
DX: J10.1 Influenza due to other identified influenza virus with other respiratory manifestations (principal); I10 Essential (primary) hypertension; E03.9 Hypothyroidism, unspecified; J45.909 Unspecified asthma, uncomplicated; Z20.822 Contact with and (suspected) exposure to COVID-19; Z88.5 Allergy status to narcotic agent; Z88.8 Allergy status to other drugs, medicaments and biological substances; Z79.899 Other long term (current) drug therapy
CPT/HCPCS: 0241U; 36415; 71046; 80053; 83735; 85025; J7030

== ENCOUNTER 2022-06-24 13:06 | Inpatient (IN) | payer MEDICARE, OTHER ==
[~2022-06-24] VITALS: Ht 162.6 cm; Wt 57.2 kg
[2022-06-24 15:09] LABS: Hematocrit 44.8 % (33.0-51.0); Hemoglobin 15.4 g/dL (11.5-16.0); Mean Corpuscular HGB Conc 34.4 g/dL (31.5-36.5); Mean Corpuscular Volume 90 fL (80-100); Mean Platelet Volume 11.2 fL (9.1-12.4); NRBC ABSOLUTE 0.02 K/mm3 (0.00-0.02); NRBC Auto 0.1 /100 WBC (0.0-0.2); Platelet Count 206 K/mm3 (150-400); RDW Coefficient Variation 15.1 % (11.7-14.2); RDW Standard Deviation 49.1 fL (35.1-46.3); Red Blood Cell Count 4.96 M/mm3 (3.80-5.20); White Blood Cell Count 20.65 K/mm3 (4.00-11.30)
[2022-06-24 15:17] LABS: Base Excess Venous -1.2 mmol/L; Bicarbonate Venous 23.6 mmol/L (24.0-30.0); PCO2 Venous 37.5 mmHg (38-42); pH Blood Venous 7.41 (7.34-7.37)
[2022-06-24 15:20] LABS: Source, Urine Straight Cath
[2022-06-24 15:26] LABS: Blood, Urine 2+ (Neg); Glucose Qualitative, Urine Neg (Neg); Ketones, Urine 1+ (Neg); Leukocyte Esterase, Urine 1+ (Neg); Nitrite, Urine Neg (Neg); Protein, Urine 3+ (Neg); Specific Gravity, Urine 1.025 (1.003-1.022); Urobilinogen, Urine 3+ (Normal)
[2022-06-24 15:32] LABS: BAND PERCENT MAN 2 % (0-8); BASOPHILS PERCENT MAN 0 % (0-2); EOSINOPHILS PERCENT MAN 0 % (0-6); LYMPHOCYTES PERCENT MAN 1 % (21-46); MONOCYTES PERCENT MAN 1 % (4-13); NEUTROPHILS ABSOLUTE MAN 20.23 K/mm3 (1.96-9.15); SEG NEUTROPHILS PERCENT MAN 96 % (41-73); TOTAL CELLS COUNTED 100
[2022-06-24 15:34] LABS: Albumin/Globulin Ratio 0.7 (0.8-1.8); Bilirubin, Total 1.8 mg/dL (0.1-1.0); Bun/Creatinine Ratio 23.1 (12.0-20.0); Calcium, Blood 10.1 mg/dL (8.5-10.1); Creatinine, Blood 1.86 mg/dL (0.40-1.00); Globulin, Blood 4.6 g/dL (2.2-4.0); Potassium, Blood 3.9 mmol/L (3.5-5.5); Total Protein, Blood 7.6 g/dL (6.4-8.2)
[2022-06-24 15:35] LABS: Bilirubin, Urine 2+ (Neg)
[2022-06-24 15:36] LABS: Appearance, Urine Cloudy (Clear); Color, Urine Brown (P-Yellow)
[2022-06-24 15:38] LABS: Bacteria Many /hpf; Squamous Epithelial Cells Few /hpf (Few)
[2022-06-24 15:41] LABS: Transitional Epithelial Cells Few /hpf (0-Rare)
[2022-06-24 16:14] LABS: Influenza A, PCR NEGATIVE (NEGATIVE); Influenza B, PCR NEGATIVE (NEGATIVE); Resp Syncytial Virus, PCR NEGATIVE (NEGATIVE); SARS-Cov-2 (COVID-19) PCR, MMC NEGATIVE (NEGATIVE)
--- NOTE | 2022-06-24 17:30 | NUR ---
INITIAL ASSESSMENT: Patient arrived from the ER via gurey and was slid over to the bed. She is resting with her eyes closed, opens her eyes when I call her name. She is non-verbal to questions, but does moan when we reposition her. Per the daughter the patient has degenrative disc disease and is painful at baseline. HRR, SR in the 90s-BP stable. LS DIm in the bases, Biox WNL on RA. BT+, pt did have BM in attends on arrival. Pt cleaned up. She has a pressure ulcer on her coccyx, her wound was cleansed and dressed with a Mepilex-photos in the chart. Bed alarm on for safety. Daughter states a couple of weeks ago she was able to get OOB to her wheelchair but has been bed bound since she got sick.
--- NOTE | 2022-06-24 18:30 | NUR ---
This RN came into the room to check on the patient, she had pulled out her IV and fluid was leaking onto the floor. I was able to start a powerglide with the rn relief charge assistance. Patient continues to rest comfortably, will report to oncoming RN.
[2022-06-25 03:44] LABS: BASOPHILS ABSOLUTE AUTO 0.04 K/mm3 (0.00-0.23); BASOPHILS PERCENT AUTO 0 % (0-2); EOSINOPHILS PERCENT AUTO 0 % (0-6); Hematocrit 37.4 % (33.0-51.0); Hemoglobin 12.7 g/dL (11.5-16.0); IMMATURE GRAN ABSOLUTE AUTO 0.06 K/mm3 (0.00-0.10); IMMATURE GRAN PERCENT AUTO 0 % (0-1); LYMPHOCYTES ABSOLUTE AUTO 0.56 K/mm3 (0.84-5.20); LYMPHOCYTES PERCENT AUTO 3 % (21-46); MONOCYTES ABSOLUTE AUTO 0.57 K/mm3 (0.16-1.47); MONOCYTES PERCENT AUTO 3 % (4-13); Mean Corpuscular HGB 30.7 pg (26.0-34.0); Mean Corpuscular Volume 90 fL (80-100); Mean Platelet Volume 10.9 fL (9.1-12.4); NEUTROPHILS ABSOLUTE AUTO 17.62 K/mm3 (1.96-9.15); NEUTROPHILS PERCENT AUTO 94 % (41-73); NRBC ABSOLUTE 0.02 K/mm3 (0.00-0.02); NRBC Auto 0.1 /100 WBC (0.0-0.2); Platelet Count 190 K/mm3 (150-400); RDW Standard Deviation 49.5 fL (35.1-46.3); Red Blood Cell Count 4.14 M/mm3 (3.80-5.20); White Blood Cell Count 18.85 K/mm3 (4.00-11.30)
[2022-06-25 04:03] LABS: Bun/Creatinine Ratio 30.4 (12.0-20.0); Calcium, Blood 8.6 mg/dL (8.5-10.1); Creatinine, Blood 1.12 mg/dL (0.40-1.00); Potassium, Blood 3.5 mmol/L (3.5-5.5)
--- NOTE | 2022-06-25 05:33 | NUR ---
SHIFT SUMMARY PT OPENS EYES TO VERBAL STIMULI ONLY. PT NOT ANSWERING QUESTIONS, JUST SAYS "OW" WHEN REPOSITIONING OR PROVIDING ORAL CARE. BP ELEVATED, SBP 150's, SR-ST 90-100's. PT OCCASIONALLY TACHING UP TO 130's BREIFLY. SpO2> 92% RA. PT INCONTINENT OF URINE AND STOOL, ATTENDS IN PLACE. PROVIDED PERICARE AND q2 TURNS. ORAL CARE PROVIDED WITH SUCTION. NO OTHER EVENTS
--- NOTE | 2022-06-25 09:44 | NUR ---
ASSUMPTION OF CARE: PATIENT IS ALERT X 0, SHE DOES RESPOND TO VERBAL STIMULUS. PUPILS REACTIVE TO LIGHT, MOANS AND GROANS. NONVERBAL SIGNS OF PAIN WITH MOVEMENT. Q2 REPOSITIONS IF NOT SOONER THAN Q2. PATIENT DOES FLEET TECHNICIAN ABNORMALLY AT OBJECTS TO INCLUDE LINES IF NOTICED. GENERALIZED WEAKNESS. PATIENT HAS BEEN SR TO ST NO ACTIVE SIGNS OF CHEST PAIN AT THIS TIME. NORMOTENSIVE. PATIENT SOUNDS CLEAR BILATERALLY ON LUNGS. INCONTINENT OF BOWEL AND URINE AT THIS TIME. CALL LIGHT IN USE REACH. PATIENT HAS POWERGLIDE IN NILDA INFUSING FLUIDS. ORAL CARE PREFORMED BY SELF AND PCT. Q6 CBG. NPO. AWAITING ALERTNESS TO INCREASE TO DO A BEDSIDE SWALLOW. ONLY CONCERN IS IF PATIENT CBG'S CONTINUE TO DECREASE WITH BEING NPO. WILL INFORM PROVIDER WHEN THEY ROUND.
--- NOTE | 2022-06-25 13:51 | NUR ---
Met with pt's , with daughter joining by phone. They report pt was recently placed into memory care at [place], and had previously been living at home with her of 67 years. According to , the pt had a very sweet demeanor and did not want to move to memory care. He states her personality changed when she moved. She became less responsive, and stopped eating or drinking. He was very tearful during the disclosure, stated he never wanted to place her, but he had become physically unable to care for her. Therapeutic listening, reminded him he is doing his very best. He did acknowledge that. Pt status changed to comfort care. She will return to [place] with hospice after the weekend, the referral has been placed, and health care / medical job titles to follow up. Bedside RN notified. Received T/O from Dr. Sung.
--- NOTE | 2022-06-26 04:58 | NUR ---
SHIFT SUMMARY PT OPENS EYES TO VERBAL STIMULI ONLY. PT NOT ANSWERING QUESTIONS, JUST SAYS "OW" WHEN REPOSITIONING OR PROVIDING ORAL CARE. KEPT PT ON CONTINUOUS SpO2 MONITORING, SpO2> 92% RA. PT INCONTINENT OF URINE AND STOOL, ATTENDS IN PLACE. PT'S URINE AND STOOL OUTPUT GRADUALLY DECREASED THROUGHOUT SHIFT. PROVIDED PERICARE AND q2 TURNS. ORAL CARE PROVIDED WITH SUCTION. MANAGED PT's PAIN PER EMAR. NO OTHER EVENTS, WILL REPORT TO ONCOMING RN.
--- NOTE | 2022-06-26 09:44 | NUR ---
RN DISCUSSED WITH DUPLICATING MACHINE OPERATOR, PT'S PLAN OF CARE - AWAITING HOSPICE REFERRAL. CM STATES THAT [facility] WILL MOST LIKELY ACCEPT PT FOR RE-ADMIT ON TUESDAY DUE TO NOT STAFFING A NURSE ON THE WEEKENDS. PT WILL OPEN EYES TO VERBAL STIMULI, AND WILL OCCASSIONALLY MOAN. TREATING PHYSICAL INDICATORS OF PAIN WITH PRN PAIN MEDS.
--- NOTE | 2022-06-26 10:15 | NUR ---
PT'S GRAND-DAUGHTER IS AT BEDSIDE. RN GAVE A VERBAL UPDATE.
--- NOTE | 2022-06-26 18:14 | NUR ---
PT ON COMFORT CARE. VISITED TODAY BY FAMILY, BRIEFLY. SHE IS AWAITING TRANSFER HOME TO [facility] WITH A HOSPICE REFERRAL. [facility] CANNOT ACCEPT PT UNTIL TUESDAY, WHEN THEY HAVE AN RN ON STAFF. PT IS MAINTAINING SATS >92% ON ROOM AIR. NPO DUE TO ASPIRATION RISK. PT WILL MOAN INTERMITTENTLY, BUT IS CONSOLABLE TO TOUCH. SHE WILL OPEN EYES TO VERBAL STIMULI, BUT UNABLE TO COMMUNICATE. PT IS TOTAL CARE FOR REPOSITIONING IN BED. MEPILEX ON SACRUM, HEEL PROTECTORS IN PLACE. THREE SOFT STOOLS TODAY. INCONTINENT OF URINE/STOOL IN ATTENDS. POWERGLIDE TO NILDA FLUSHES WELL. RN WILL CONTINUE TO MONITOR.
--- NOTE | 2022-06-26 19:00 | NUR ---
Assumed report and assumed patient care. Patient resting in bed, opens eyes to speech, does not follow commands and moans and groans to painful stimuli. Loose brown stool and Stg II noted to coccyx during shift change. Mepilex in place. On room air, arms contracted and notewd to move extrimities.
--- NOTE | 2022-06-27 06:00 | NUR ---
END OF SHIFT NURSING REPORT - PM Patient admitted for comfort care [facility]. She is non-verble, growns and moans for pain. medicated with PRN pain medication per comfort protocols. Had 2x loose bowel movements during shift, and repositioned Q2hrs.
--- NOTE | 2022-06-27 17:01 | NUR ---
RN PLACED PHONE CALL TO PT'S DAUGHTER VIRIDIANA, WHO IS PERSON TO NOTIFY. RN REPORTED THAT PT IS LESS RESPONSIVE NOW THAN SHE WAS AT THE BEG OF SHIFT. SHE DOESNOT APPEAR TO BE IN ANY PAIN, HER MUSCLES ARE LESS RIGID THAN YESTERDAY. NO MOANING IN PAIN. SHE HAS NOT HAD ANY URINARY OR STOOL OUTPUT THIS SHIFT. SHE IS INTERMITTENTLY RESPONSIVE TO VERBAL STIMULI. VIRIDIANA STATED THAT SHE WOULD NOTIFY HER FAMILY.
--- NOTE | 2022-06-28 10:51 | NUR ---
CARE ASSUMPTION This RN assumed care at 0700. Patient is asleep in room. patient wakes with painful stimuli. Patient has been repositined every two hours since this RN has assumed care. Patient oral care done. This RN updated the patients , about the patient returning to [place] this afternoon. the estimated time frame is 1300. verbalized understanding of plan of care. Plan of care is up to date. see assessment for further detials. call light is within reach and playing music.
[2022-06-28] MEDS ORDERED: ATROPINE SULFATE2 M1 SL (11:57)
[2022-06-28] MEDS ORDERED: Haloperidol1 MG PO (11:58)
[2022-06-28] MEDS ORDERED: Ativan1 MG PO (11:59)
[2022-06-28] MEDS ORDERED: MORP20L SL (12:00)
[2022-06-28] MEDS ORDERED: TRANSDERM-SCOP1 EA10 TOP (12:01)
--- NOTE | 2022-06-28 13:05 | NUR ---
DISCHARGE TO [facility] arrived to take patient to [facility]. Patient left in no distress with all belongings. Patient left with discharge paper work.
== END 2022-06-28 12:49 | disposition hospice, home (50) | DRG 871 ==
LOC: ER 13:06 → MEDS 16:34 → PCU 16:34
PROVIDERS: Student in an Organized Health Care Education/Training Program; ADMIT Internal Medicine
DX: A41.50 Gram-negative sepsis, unspecified (principal); G92.8 Other toxic encephalopathy; J18.9 Pneumonia, unspecified organism; N39.0 Urinary tract infection, site not specified; N17.9 Acute kidney failure, unspecified; E87.0 Hyperosmolality and hypernatremia; E87.20 Acidosis, unspecified; Z51.5 Encounter for palliative care; Z20.822 Contact with and (suspected) exposure to COVID-19; Z66 Do not resuscitate; I10 Essential (primary) hypertension; E03.9 Hypothyroidism, unspecified; G43.909 Migraine, unspecified, not intractable, without status migrainosus; R65.20 Severe sepsis without septic shock; M79.7 Fibromyalgia; M54.9 Dorsalgia, unspecified; G89.29 Other chronic pain; F03.90 Unspecified dementia, unspecified severity, without behavioral disturbance, psychotic disturbance, mood disturbance, and anxiety; J45.909 Unspecified asthma, uncomplicated; E86.0 Dehydration; K21.9 Gastro-esophageal reflux disease without esophagitis; M47.9 Spondylosis, unspecified; L89.152 Pressure ulcer of sacral region, stage 2; B96.89 Other specified bacterial agents as the cause of diseases classified elsewhere; Z90.49 Acquired absence of other specified parts of digestive tract; Z90.710 Acquired absence of both cervix and uterus; Z98.890 Other specified postprocedural states; Z88.5 Allergy status to narcotic agent; Z88.8 Allergy status to other drugs, medicaments and biological substances; Z79.899 Other long term (current) drug therapy; Z98.42 Cataract extraction status, left eye
CPT/HCPCS: 0241U; 36415; 70450; 71045; 80048; 80053; 81001; 82803; 82947; 83605; 83735; 84145; 84443; 85025; 87040; 87077; 87086; 87186; 93005; 93010; 96361; 96365; 96375; 99285-25; A9270; C1751; J0456; J0696; J1644; J2270; J7030; J7050; J7120